=== PATIENT | male | born 1995 | race Caucasian/White ===

== ENCOUNTER 2018-12-04 07:16 | Emergency (ER) | payer SELFPAY ==
[~2018-12-04] VITALS: Ht 175.3 cm; Wt 97.5 kg
[2018-12-04 07:25] VITALS: BP 169/87
--- NOTE | 2018-12-04 08:09 | PHYS DOC ---
Past Medical History Past Medical History: Anxiety, Depression, Hypertension Past Surgical History: No Surgical History Alcohol Use: Occasionally Drug Use: Marijuana Adult General Chief Complaint Chief Complaint: FEVER HPI HPI Patient is a 23-year-old male who presents to the emergency department for evaluation. He states that for the past 2 days, he has had nasal congestion, and nonproductive cough. He developed fever last night, which responded to Tylenol, his last dose was 4:30AM. He denies any pain. He has not had any otalgia, sore throat, headache, shortness of breath, dizziness or lightheadedness, numbness, or focal weakness. There are no alleviating, or exacerbating factors to his symptoms. Review of Systems Review of Systems Constitutional: Denies lethargy or chills [] Eyes: Denies change in visual acuity, redness, or eye pain [] HENT: Denies otalgia or sore throat [] Respiratory: Denies productive cough or shortness of breath [] GI: Denies abdominal pain, nausea, vomiting, bloody stools or diarrhea [] : Denies dysuria or hematuria [] Musculoskeletal: Denies back pain or joint pain, or myalgias [] Integument: Denies rash or skin lesions [] Neurologic: Denies headache, focal weakness or sensory changes [] Allergies Allergies Allergies Coded Allergies Type Severity Reaction Last Updated Verified No Known Drug Allergies 12/04/18 No Physical Exam Physical Exam PHYSICAL EXAM: CONSTITUTIONAL: Well developed, well nourished HEAD: normocephalic, atraumatic EENT: PERRL, EOMI. Conjunctivae normal color, sclerae non-icteric; moist mucous membranes. The oropharynx is nonerythematous. Tympanic membranes are normal bilaterally. Nasal congestion is present. NECK: Supple, non-tender; no meningismus. LUNGS: Lungs CTA, breathing even and unlabored. Normal air movement. HEART: Regular rate and rhythm, no murmur CHEST: No deformity; non-tender ABDOMEN: The abdomen is soft, and non-tender, no masses or bruits. EXTREM: Normal ROM; no deformity, no calf tenderness. Normal pulses palpable in all extremities. There is no pedal edema. SKIN: No rash; no diaphoresis NEURO: Alert; normal speech and cognition; CN's grossly intact; strength grossly intact without focal deficit. BACK: No CVA TTP. Current Patient Data Vital Signs Vital Signs Date Time Temp Pulse Resp B/P (MAP) Pulse Ox O2 Delivery O2 Flow Rate FiO2 12/04/18 07:25 98.1 91 20 169/87 (114) 96 Room Air 98.1 EKG EKG [] Radiology/Procedures Radiology/Procedures [] Course & Med Decision Making Course & Med Decision Making Discussed expectant and symptomatic management with the patient with the use of [id number] decongestants and analgesics/antipyretics, the need for close PCP follow-up, the need for blood pressure follow-up and monitoring, and return precautions. Patient states she has a history of hypertension and is supposed be on medication but has not followed up or taking medication in a while. I did stress the importance of outpatient blood pressure management, as well as complications of untreated hypertension, including increased risk of coronary disease and renal failure among other adverse health conditions. Patient expressed understanding. Dragon Disclaimer Dragon Disclaimer This electronic medical record was generated, in whole or in part, using a voice recognition dictation system. Departure Departure Impression: Primary Impression: Upper respiratory infection Additional Impression: Elevated blood pressure reading Disposition: HOME, SELF-CARE Condition: STABLE Patient Instructions: How to Take Your Blood Pressure, [id number], Upper Respiratory Infection, Adult Additional Instructions: Use the provided list of primary care providers to help establish care with a primary care provider for further outpatient management and evaluation of your elevated blood pressure reading today. Problem Qualifiers MADISON YUN MD Dec 04, 2018 08:09
== END 2018-12-04 08:28 | disposition home or self-care (01) ==
LOC: ER 07:16
DX: J06.9 Acute upper respiratory infection, unspecified (principal); I10 Essential (primary) hypertension; F41.9 Anxiety disorder, unspecified; F32.9 Major depressive disorder, single episode, unspecified
CPT/HCPCS: 99281